=== PATIENT | male | born 1960 | race Caucasian/White ===

== ENCOUNTER 2024-01-11 16:53 | Inpatient (IN) ==
[2024-01-11 17:54] LABS: ABS Lymphocytes 0.4 10^3/uL (1.0-4.8); ABS Monocytes 0.3 10^3/uL (0.0-1.1); Eosinophil % 0.2 %; Hematocrit 39.9 % (38-53); Hemoglobin 13.8 g/dL (13.2-16.3); Lymphocyte % 2.8 %; Mean Corpuscular Hemoglobin 32.9 pg (27-33); Mean Corpuscular Hgb Conc 34.6 g/dL (31-36); Mean Corpuscular Volume 95.1 fL (80-97); Mean Platelet Volume 7.6 fL (7.5-11.2); Platelet Count 304 10^3/uL (150-450); Red Blood Count 4.19 10^6/uL (4.06-5.63); Red Cell Distribution Width 13.3 % (12-17); White Blood Count 14.8 10^3/uL (3.6-10.2)
[2024-01-11 17:59] LABS: Urine Appearance Clear; Urine Bilirubin Negative (Negative); Urine Blood 1+ (Negative); Urine Color Light-Yellow; Urine Glucose Negative (Negative); Urine Ketones Negative (Negative); Urine Nitrite Negative (Negative); Urine Protein Negative (Negative); Urine Specific Gravity 1.013 (1.002-1.030); Urine Urobilinogen Negative (Negative)
[2024-01-11 18:05] LABS: INR 0.91 (0.83-1.13); Urine Bacteria Absent /HPF (Absent); Urine Red Blood Cell 3+(>10/hpf) /HPF (0-Trace); Urine White Blood Cell 3+(>20/hpf) /HPF (0-Trace)
[2024-01-11 18:27] LABS: Albumin 4.2 g/dL (3.2-5.2); Albumin/Globulin Ratio 1.4 (1-3); Calcium 9.4 mg/dL (8.6-10.3); Creatinine, Serum 0.98 mg/dL (0.67-1.17); Globulin 2.9 g/dL (2-4); Potassium 4.1 mmol/L (3.5-5.0); Total Bilirubin 0.4 mg/dL (0.2-1.0); Total Protein 7.1 g/dL (6.4-8.9); eGFR CKD-EPI 87.7 (>60)
[2024-01-11] MEDS: Piperacillin/Tazobac 3.375 BAG 3.375 GM/100 ML BAG IV ONE ×2 (18:35→23:26)
[2024-01-11] MEDS: Vancomycin 1,250 MG in NS 0.9% 250 ml 250 ML IVPB ONE (19:17)
[2024-01-11] MEDS: Lactated Ringers 1000 ml BAG 1,000 ML IV ONE ×2 (19:55→23:27)
[2024-01-11] MEDS: Acetaminophen IV 1 GM/100ML 1,000 MG/100 ML BAG IV ONE (19:55)
[2024-01-11] MEDS: Iohexol 350 (CONTRAST) 500 ML MDV IV ONE (20:47)
[2024-01-11 22:10] LABS: CRP High Sensitivity 70.53 mg/L (<2.00)
[2024-01-12] MEDS ORDERED: Nicotine GUM 2MG FRUIT FLAVOR PO PRN (01:31)
[2024-01-12] MEDS ORDERED: Albuterol HFA INHALER 8 gm MDI INH PRN (02:06)
[2024-01-12] MEDS: Lactated Ringers 1000 ml BAG 1,000 ML IV SCH (02:19)
[2024-01-12] MEDS: Cefepime 2 GM in Dextrose 2 GM/50 ML BAG IV SCH (05:58)
[2024-01-12] MEDS: Enoxaparin 40 MG/0.4 ML SYR SUBCUT SCH (05:58)
[2024-01-12 06:33] LABS: Hemoglobin 10.6 g/dL (13.2-16.3); Mean Corpuscular Hemoglobin 32.2 pg (27-33); Mean Corpuscular Hgb Conc 34.3 g/dL (31-36); Mean Corpuscular Volume 93.9 fL (80-97); Mean Platelet Volume 8.2 fL (7.5-11.2); Platelet Count 234 10^3/uL (150-450); Red Blood Count 3.31 10^6/uL (4.06-5.63); Red Cell Distribution Width 13.6 % (12-17); White Blood Count 22.4 10^3/uL (3.6-10.2)
[2024-01-12 06:41] LABS: Hepatitis C Antibody Negative (Negative)
[2024-01-12 06:52] LABS: Calcium 7.7 mg/dL (8.6-10.3); Creatinine, Serum 0.85 mg/dL (0.67-1.17); Potassium 3.9 mmol/L (3.5-5.0); eGFR CKD-EPI 98.9 (>60)
[2024-01-12 08:30] LABS: Magnesium 1.7 mg/dL (1.9-2.7)
[2024-01-12 08:40] LABS: RBC Morphology Normal (Normal)
[2024-01-12] MEDS: Magnesium Sulfate 2 gm BAG 2 GM/50 ML BAG IVPB ONE (08:47)
[2024-01-12] MEDS: Nicotine PATCH 14 MG/24 HR PATCH TRANSDERM SCH (08:52)
[2024-01-12 09:01] LABS: ABS Lymphocytes 0.8 10^3/uL (1.0-4.8); ABS Monocytes 1.7 10^3/uL (0.0-1.1); ABS Neutrophils 19.8 10^3/uL (1.5-7.6); ABS Nucleated RBC 0.01 10^3/ul; Eosinophil % 0.1 %; Lymphocyte % 3.8 %
[2024-01-13] MEDS: Nicotine PATCH 14 MG/24 HR PATCH TRANSDERM SCH (06:17)
[2024-01-13 06:39] LABS: ABS Eosinophils 0.1 10^3/uL (0.0-0.5); ABS Monocytes 0.8 10^3/uL (0.0-1.1); ABS Neutrophils 13.3 10^3/uL (1.5-7.6); Eosinophil % 0.5 %; Hematocrit 31.7 % (38-53); Hemoglobin 10.9 g/dL (13.2-16.3); Lymphocyte % 12.2 %; Mean Corpuscular Hemoglobin 32.8 pg (27-33); Mean Corpuscular Hgb Conc 34.3 g/dL (31-36); Mean Corpuscular Volume 95.4 fL (80-97); Mean Platelet Volume 8.3 fL (7.5-11.2); Platelet Count 221 10^3/uL (150-450); Red Blood Count 3.32 10^6/uL (4.06-5.63); Red Cell Distribution Width 13.8 % (12-17); White Blood Count 16.2 10^3/uL (3.6-10.2)
[2024-01-13 06:56] LABS: Calcium 8.2 mg/dL (8.6-10.3); Creatinine, Serum 0.86 mg/dL (0.67-1.17); Magnesium 1.9 mg/dL (1.9-2.7); eGFR CKD-EPI 98.5 (>60)
[2024-01-13 10:08] VITALS: BP 121/83
[2024-01-15 20:57] LABS: Anaplasma phagocytophilum Negative (Negative); B. miyamotoi PCR, B Negative (Negative); Babesia divergens/MO-1 Negative (Negative); Babesia ducani Negative (Negative); Ehrlichia chaffeensis Negative (Negative); Ehrlichia ewingii/canis Negative (Negative); Ehrlichia muris eauclairensis Negative (Negative)
== END 2024-01-13 12:10 | disposition home or self-care (01) | DRG 720 ==
LOC: EDHOLD 16:53 → ED 16:53 → SUATTDRO 01-12 00:02 → MEDTELE 01-12 01:12
PROVIDERS: ADMIT Internal Medicine; ATTEND Student in an Organized Health Care Education/Training Program